=== PATIENT | male | born 1925 | race Caucasian/White ===

== ENCOUNTER 2016-12-28 13:14 | Inpatient (IN) | payer OTHER ==
[~2016-12-28] VITALS: Ht 182.9 cm; Wt 63.5 kg
[~2016-12-28 13:14] MED LIST: ALBU2.5V11 IH; MOME13HF2 IH
--- NOTE | 2016-12-28 13:20 | NUR ---
KIERA FROM HOME DT CHEST PAIN SINCE THIS AM. FAMILY MEMBERS AT BS. IV ACCESS BATTERY STACKER. SEEN BY MD FOR EVAL. NOTED TACHY. SAFETY AND COMFORT MEASURES PROVIDED. WILL MONITOR.
[2016-12-28] MEDS ORDERED: DILTIAZEM HCL 25 MG IV ONE ×2 (13:21→16:14)
[2016-12-28] MEDS ORDERED: DILTIAZEM HCL 50 MG IV IV ONE (13:30)
--- NOTE | 2016-12-28 13:30 | NUR ---
SECOND IV ACCESS STARTED. MEDICATED ORDERED.
[2016-12-28 14:15] LABS: BASOPHILS # (AUTO) 0.2 /CMM (0.0-0.2); BASOPHILS % (AUTO) 1.2 % (0.0-2.0); EOSINOPHILS # (AUTO) 1.1 /CMM (0.0-0.7); EOSINOPHILS % (AUTO) 8.2 % (0.0-6.0); HEMATOCRIT 41 % (39-51); HEMOGLOBIN 13.8 g/dL (13.5-17.5); LYMPHOCYTES # (AUTO) 1.9 /CMM (0.8-4.8); LYMPHOCYTES % (AUTO) 14.4 % (20.0-44.0); MEAN CORPUSCULAR HEMOGLOBIN 35 PG (26.0-33.0); MEAN CORPUSCULAR HGB CONC 34 g/dl (31.0-36.0); MEAN CORPUSCULAR VOLUME 103 fL (80-96); MONOCYTES # (AUTO) 1.2 /CMM (0.1-1.30); MONOCYTES % (AUTO) 9.4 % (2.0-12.0); NEUTROPHILS # (AUTO) 8.7 /CMM (1.8-8.9); NEUTROPHILS % (AUTO) 66.8 % (43.0-81.0); PLATELET COUNT (AUTO) 430 /CMM (150-450); RDW COEFFICIENT OF VARIATION 14.2 (11.5-15.0); RED BLOOD CELL COUNT(AUTO) 3.98 MIL/uL (4.5-6.0); WHITE BLOOD COUNT (AUTO) 13.1 K/uL (4.3-11.0)
--- NOTE | 2016-12-28 14:15 | NUR ---
NOTED FC NUT SIFTER PER CAREGIVER FC HAS BEEN THERE FOR A MONTH. RECEIVED VERBAL ORDER FROM MD TO DC OLD FC AND PUT A NEW ONE. ORDERS CARRIED OUT.
--- NOTE | 2016-12-28 14:30 | NUR ---
AT FOR POC.
[2016-12-28 14:37] LABS: CALCIUM, SERUM 8.4 mg/dL (8.5-10.1); CARBON DIOXIDE 26 mmol/L (21-32); CHLORIDE 101 mmol/L (98-107); CREATININE 1.2 mg/dL (0.6-1.3); GLUCOSE 95 mg/dL (74-106); POTASSIUM 3.5 mmol/L (3.5-5.1); SODIUM SERUM 135 mmol/L (136-145); UREA NITROGEN, BLOOD 21 mg/dL (7-18)
[2016-12-28 14:40] LABS: INR 1.02 (0.87-1.13); PROTHROMBIN TIME 10.6 SECS (9.5-12.7)
[2016-12-28 14:43] LABS: ALANINE AMINOTRANSFERASE 25 U/L (12-78); ALBUMIN 2.8 g/dL (3.4-5.0); ALKALINE PHOSPHATASE 107 U/L (46-116); ASPARTATE AMINOTRANSFERASE 27 U/L (15-37); BILIRUBIN,DIRECT 0.2 mg/dL (0.0-0.2); BILIRUBIN,TOTAL 0.8 mg/dL (0.2-1.0); TOTAL PROTEIN, SERUM 6.6 g/dL (6.4-8.2)
[2016-12-28 14:44] LABS: TROPONIN I 0.375 ng/mL (0.00-0.056)
[2016-12-28] MEDS ORDERED: ASPIRIN 81 MG TAB.CHEW PO ONE (15:00)
[2016-12-28] MEDS ORDERED: ASPIRIN 81 MG TAB.CHEW ONE (15:08)
[2016-12-28 15:10] LABS: APPEARANCE,URINE Slightly Cloudy (CLEAR); BILIRUBIN,URINE Negative (NEGATIVE); BLOOD, URINE Large Ery/uL (NEGATIVE); KETONES,URINE Trace (NEGATIVE); LEUKOCYTE ESTERASE ,URINE Small (NEGATIVE); NITRITE, URINE Negative (NEGATIVE); PROTEIN,URINE 30 mg/dl (NEGATIVE); UGLUCOSE Negative (NEGATIVE); UROBILINOGEN,URINE 0.2 EU/dL (0.2)
[2016-12-28 15:11] LABS: COLOR,URINE Dark Yellow (YELLOW)
[2016-12-28 15:19] LABS: RBC,URINE 21-50 /HPF (0-2); WBC,URINE 15-30 /HPF (0-3)
[2016-12-28 15:20] LABS: BACTERIA,URINE Rare /HPF (None Seen); HYALINE CASTS, URINE Few /LPF (None Seen); MUCUS,URINE Rare /LPF (None Seen); SQUAMOUS EPITHELIAL CELL,UR Few /HPF (None Seen)
[2016-12-28] MEDS ORDERED: TIOT18CA3 IH (15:37)
[2016-12-28] MEDS ORDERED: FURO20TA4 PO (15:37)
[2016-12-28] MEDS ORDERED: ACET-73 PO (15:37)
[2016-12-28] MEDS ORDERED: LEVO50TA8 PO (15:37)
[2016-12-28] MEDS ORDERED: POTA10TA PO (15:37)
[2016-12-28] MEDS ORDERED: SPIR25TA4 PO (15:37)
[2016-12-28] MEDS ORDERED: ASPI325T2 PO (15:37)
[2016-12-28] MEDS ORDERED: ASCO500T9 PO (15:37)
[2016-12-28] MEDS ORDERED: CALC-1067 PO (15:37)
[2016-12-28] MEDS ORDERED: DILT120C47 PO (15:37)
[2016-12-28] MEDS ORDERED: OMEG1CAP8 PO (15:37)
[2016-12-28] MEDS ORDERED: AMIO200T2 PO (15:37)
[2016-12-28] MEDS ORDERED: SENN1TAB21 PO (15:37)
[2016-12-28] MEDS ORDERED: DILTIAZEM HCL 25 MG IV IV ONE (16:00)
[2016-12-28] MEDS ORDERED: ENOXAPARIN SODIUM 80 MG/0.8 ML DISP.SYRIN SQ ONE (16:59)
[2016-12-28] MEDS ORDERED: IV NS 0.9% 500 ML BAG IV ONE (17:00)
[2016-12-28] MEDS ORDERED: ENOXAPARIN SODIUM 60 MG/0.6 ML DISP.SYRIN SQ ONE (17:00)
--- NOTE | 2016-12-28 18:04 | NUR ---
REPORT GIVEN TO ANGLE BROWN FOR 120-1.
--- NOTE | 2016-12-28 18:15 | NUR ---
RN NOTES RECEIVED PT FROM ER VIA MATTHEW, PT A&0X3, ON ROOM AIR SAT AT96%. AFIB/FLUTTER ON THE MONITOR HR 107 WITH THE AT BEDSIDE. R AC 2O GAUGE IV SITE DRY AND INTACT. NO IVF RUNNING. ROWLAND CATH IN PLACE, DRAINING TO GRAVITY, YELLOW IN COLOR. NO SOB OR DISTRESS NOTED AT THIS TIME. BED LOCKED AND IN LOWEST POSITION, CALL LIGHT WITHIN REACH, WILL ENDORSE TO ONCOMING SHIFT.
[2016-12-28 18:30] VITALS: BP 125/65
[2016-12-28] MEDS: ASPIRIN 325 MG TABLET PO SCH (18:30)
[2016-12-28] MEDS ORDERED: MORPHINE SULFATE INJ 2 MG/ML DISP.SYRIN IV PRN (18:30)
[2016-12-28] MEDS ORDERED: ACETAMINOPHEN 325 MG TABLET PO PRN (18:30)
--- NOTE | 2016-12-28 19:30 | NUR ---
SALES REPRESENTATIVE HEALTH INSURANCE INITIAL NOTE PT RECEIVED IN BED WITH FAMILY AT BEDSIDE. A/O X3 AND ABLE TO MAKE SOME NEEDS KNOWN. ON 2L OF O2 VIA NC AND SATURATING 94%. BREATHING EVEN, REGULAR AND UNLABORED. NO C/O CHEST PAIN OR DISCOMFORT AT THIS TIME. HEART, LUNG AND BOWEL SOUNDS AUSCULTATED. WOUND TREATMENT PERFORMED AND DOCUMENTED. PT POSITIONED WITH PILLOWS FOR COMFORT. PER FAMILY, CAREGIVER WILL STAY WITH PT OVER NIGHT. TELE- A-FIB/A-FLUTTER 90-100. BED IN LOWEST POSITION, LOCKED IN PLACE AND BED ALARM ON. HOB ELEVATED. CALL LIGHT WITHIN REACH AT ALL TIMES. WILL CONTINUE TO MONITOR.
[2016-12-28 20:00] VITALS: BP 130/69
--- NOTE | 2016-12-28 23:00 | NUR ---
BOOTH MANAGER NOTE ALSO NOTED WITH ROWLAND CATHETER IN PLACE AND DRAINING BY GRAVITY CLEAR/YELLOW URINE. IV RAC #20 CLEAN, DRY, INTACT AND FLUSHING WELL. SPOKE WITH PT AND CHRISTIANNE HORNER STATING THEIR CODE STATUS TO BE DNR/DNI WITH ADVANCED DIRECTIVES IN CHART. SPOKE WITH HEAD TELLER CAROLYN VELAZQUEZ APPLIANCE ASSEMBLER REGARDING CHANGING FULL CODE STATUS TO DNR/DNI STATUS. ORDERS NOTED AND CARRIED OUT. WILL CONTINUE TO MONITOR.
[2016-12-29] VITALS: BP 132/60
[2016-12-29] MEDS: ASCORBIC ACID 500 MG TABLET PO SCH ×3 (00:42→17:25)
[2016-12-29 02:45] LABS: BASOPHILS # (AUTO) 0.1 /CMM (0.0-0.2); BASOPHILS % (AUTO) 0.9 % (0.0-2.0); EOSINOPHILS # (AUTO) 1.3 /CMM (0.0-0.7); EOSINOPHILS % (AUTO) 10.9 % (0.0-6.0); HEMATOCRIT 35 % (39-51); HEMOGLOBIN 11.8 g/dL (13.5-17.5); LYMPHOCYTES # (AUTO) 2.3 /CMM (0.8-4.8); LYMPHOCYTES % (AUTO) 18.6 % (20.0-44.0); MEAN CORPUSCULAR HEMOGLOBIN 35 PG (26.0-33.0); MEAN CORPUSCULAR HGB CONC 34 g/dl (31.0-36.0); MEAN CORPUSCULAR VOLUME 104 fL (80-96); MONOCYTES # (AUTO) 0.9 /CMM (0.1-1.30); MONOCYTES % (AUTO) 7.4 % (2.0-12.0); NEUTROPHILS # (AUTO) 7.6 /CMM (1.8-8.9); NEUTROPHILS % (AUTO) 62.2 % (43.0-81.0); PLATELET COUNT (AUTO) 344 /CMM (150-450); RDW COEFFICIENT OF VARIATION 15.1 (11.5-15.0); RED BLOOD CELL COUNT(AUTO) 3.38 MIL/uL (4.5-6.0); WHITE BLOOD COUNT (AUTO) 12.2 K/uL (4.3-11.0)
[2016-12-29 02:58] LABS: CALCIUM, SERUM 8.1 mg/dL (8.5-10.1); CARBON DIOXIDE 28 mmol/L (21-32); CHLORIDE 103 mmol/L (98-107); CREATININE 1.1 mg/dL (0.6-1.3); GLUCOSE 91 mg/dL (74-106); MAGNESIUM 1.9 mg/dL (1.8-2.4); PHOSPHORUS 3.2 mg/dL (2.5-4.9); POTASSIUM 3.4 mmol/L (3.5-5.1); SODIUM SERUM 138 mmol/L (136-145); UREA NITROGEN, BLOOD 21 mg/dL (7-18)
[2016-12-29 03:01] LABS: CHOLESTEROL 144 mg/dL (<200); HDL CHOLESTEROL 42 mg/dL (40-60); LDL 105 mg/dL (0-99); TRIGLYCERIDES 41 mg/dL (30-150)
--- NOTE | 2016-12-29 03:15 | NUR ---
RN NOTES Raz Bernard from laboratory called for troponin 1.638; on lovenox 70 q12h. Primary RN Anna notified
[2016-12-29 04:00] VITALS: BP 116/66
--- NOTE | 2016-12-29 04:13 | NUR ---
KETTLE ROOM HELPER NOTE RELAYED TROPONIN RESULT OF 1.638 TO WILDLIFE MANAGEMENT PROFESSOR CAROLYN VELAZQUEZ TOUR DRIVER WITH ORDERS TO HAVE CARDIOLOGY FOLLOW UP IN THE MORNING SHIFT.
[2016-12-29] MEDS: LEVOTHYROXINE SODIUM 50 MCG TABLET PO SCH (06:33)
[2016-12-29] MEDS: FUROSEMIDE 20 MG TABLET PO SCH ×2 (06:33→17:25)
[2016-12-29] MEDS: POTASSIUM CHLORIDE 10 MEQ TABLET.SA PO SCH ×2 (06:33→17:24)
--- NOTE | 2016-12-29 07:15 | NUR ---
RN INITIAL NOTES: REC'D PT AWAKE ON BED, NOT IN ANY FORM OF DISTRESS, A/O X2 W/ CONFUSION, DENIES ANY CHEST PAIN/DISCOMFORT. ON O2 AT 2LPM/NC, NO SOB. ON TELEMONITOR, UNCONTROLLED AFIB, A. FLUTTER W/ HR 90-110'S. HAS RFA G20, SL, FLUSHED, PATENT & INTACT W/ NO S/SX OF INFECTION/ INFILTRATION NOTED. HAS PATENT & INTACT FC DRAINING TO ADEQUATE URINE OUTPUT. HAS CAREGIVER AT BEDSIDE. PROVIDED COMFORT & SAFETY MEASURES. BED KEPT LOW & IN LOCKED POS. CALL LIGHT PLACED W/IN REACH. WILL CONTINUE TO MONITOR AND ATTEND PT'S NEEDS.
--- NOTE | 2016-12-29 07:30 | NUR ---
OIL AND GAS LEASE PUMPER CLOSING NOTE PT REMAINED STABLE DURING SHIFT. NO ACUTE DISTRESS NOTED. CAREGIVER AT BEDSIDE. ALL NEEDS ATTENDED TO PROMPTLY. KEPT CLEAN AND DRY. REPOSITIONED Q2H. TELE- A-FIB/ A-FLUTTER 99. ROW[place] CATHETER IN PLACE. ALL DUE MEDS GIVEN ORDERED AND WELL TOLERATED. NEW IV INSERTED IN RFA D/T PT PULLING OUT. PROCEDURE WELL TOLERATED AND EXPLAINED TO PT THE IMPORTANCE OF HAVING IV ACCESS DURING HOSPITAL STAY. PT VERBALIZED UNDERSTANDING. WILL ENDORSE TO NEXT SHIFT FOR CONTINUITY OF CARE.
[2016-12-29 08:00] VITALS: BP 105/49
[2016-12-29] MEDS: ASPIRIN 325 MG TABLET PO SCH (08:47)
[2016-12-29] MEDS: CALCIUM CARB 600MG /VIT D 1 EACH TABLET PO SCH (08:47)
[2016-12-29] MEDS: SENNOSIDES/DOCUSATE SODIUM 1 TAB TABLET PO SCH ×2 (08:47→17:24)
[2016-12-29] MEDS ORDERED: SPIRONOLACTONE 25 MG TABLET PO SCH (09:00)
[2016-12-29] MEDS ORDERED: ENOXAPARIN SODIUM 60 MG/0.6 ML DISP.SYRIN SQ SCH (09:00)
[2016-12-29] MEDS ORDERED: TIOTROPIUM BROMIDE 6 CAP/BOX CAP.W.DEV IH SCH (09:00)
--- NOTE | 2016-12-29 09:12 | NUR ---
RN NOTES: PT REFERRED TO DR. TOVAR DUE TO UNCONTROLLED AFIB, HR AT 90'S TO 130'S BPM. PT DENIES ANY CHEST PAIN/ DISCOMFORT. BP 109/52. PER MD, PLEASE REFER PT TO DR. SCHULZ FOR CARDIO CONSULT AND ORDERS. CALLED DR. SCHULZ'S OFFICE SPOKE W/ AUSTEN, MESSAGE TO BE RELAYED TO DR. SCHULZ. AWAITING CALL BACK.
--- NOTE | 2016-12-29 11:51 | NUR ---
RN NOTES: PT SEEN & EXAMINED BY DR. TOVAR. EKG RE-ORDERED STAT, SPOKE W/ LULY RT.
[2016-12-29 12:00] VITALS: BP 114/64
[2016-12-29] MEDS ORDERED: HEPARIN INFUSION/D5W 500 ML IV PRN (12:00)
--- NOTE | 2016-12-29 12:10 | NUR ---
RN NOTES: PER DR. TOVAR, NO BOLUS NEEDED TO START HEPARIN DRIP. RELAYED TO MD EKG RESULT WELL.
--- NOTE | 2016-12-29 13:00 | NUR ---
RN NOTES: DR. SCHULZ MADE AWARE OF CONSULT.
[2016-12-29] MEDS ORDERED: IPRATROPIUM NEB FS 0.5 MG/2.5 ML AMPUL.NEB NEB SCH (13:30)
--- NOTE | 2016-12-29 15:55 | NUR ---
RN NOTES: PT SEEN & EXAMINED BY DR. SCHULZ. PER DR. SCHULZ DC HEPARIN DRIP, PT ALREADY ON LOVENOX 70 MG Q12H. NO NEED TO CHECK PT/INR AT 7:30PM.
[2016-12-29 16:00] VITALS: BP 123/62
[2016-12-29] MEDS: SPIRIVA INHALER INH SCH (17:26)
[2016-12-29] MEDS: NITROGLYCERIN 0.4 MG/TAB BOTTLE SL PRN (17:54)
--- NOTE | 2016-12-29 17:55 | NUR ---
RN NOTES: PT'S HR NOTED 133 BPM, SVT ON TELEMONITOR. PT C/O CHEST PAIN & PALPITATIONS. NITROSTAT 0.4 MG SL TAB GIVEN X1. BP 128/32. AFTER MEDICATION, PT WAS RELIEVED. DR. TOVAR MADE AWARE AND ORDER TO INFORM DR. SCHULZ.
[2016-12-29] MEDS ORDERED: AMIODARONE HCL 200 MG TABLET PO SCH (18:00)
[2016-12-29] MEDS ORDERED: METOPROLOL TARTRATE INJ 5 MG/5 ML AMPUL IVP STA (18:08)
--- NOTE | 2016-12-29 18:11 | NUR ---
RN NOTES: DR. ESPINOZA (ON-CALL FOR DR. SCHULZ) MADE AWARE OF PT CURRENT CONDITION W/ ORDERS TO DO STAT EKG, GIVE METOPROLOL 5 MG IVP NOW AND GIVE EARLY DOSE OF 9PM METOPROLOL WELL. Addendum: 12/29/16 at 1836 by AMBAR CURIEL RN ADDENDUM: CALLED DR. ESPINOZA TO RELAY EKG RESULT AND UPDATE RE: CURRENT PT CONDITION. AWAITING CALL BACK. BP 93/53, HR 89 BPM. PT DENIES CHEST PAIN AT THIS TIME.
[2016-12-29] MEDS ORDERED: METOPROLOL TARTRATE 25 MG TABLET PO SCH ×2 (18:25→21:00)
--- NOTE | 2016-12-29 19:00 | NUR ---
RN CLOSING NOTES: SPOKE W/ DR. ESPINOZA AND RELAYED EKG RESULT WELL UPDATED REGARDING CURRENT CONDITION OF THE PT POST IVP OF 5 MG METOPROLOL. PT DENIES CHEST PAIN AND PALPITATION AT THIS TIME. BP 93/45, ON TELEMONITOR PT IS A.FLUTTER W/ HR 86BPM. PER DR. ESPINOZA OKAY TO GIVE METOPROLOL PO 25 MG ORIGINALLY SCHEDULED AND STILL OKAY TO DC TO [facility] FOR CARDIAC CATH PLANNED. RFA G20, SL, KEPT PATENT & INTACT W/ NO S/SX OF INFECTION/ INFILTRATION NOTED. FC KEPT PATENT & INTACT DRAINING TO ADEQUATE URINE OUTPUT. PER DONITA GUAMAN TRANSFER TO [facility] DEPENDS ON BED AVAILABILITY. CAREGIVER AND AT BEDSIDE KEPT UPDATED ABOUT THE PT STATUS. KEPT WELL RESTED. NEEDS ATTENDED. BED KEPT LOW & IN LOCKED POS. CALL LIGHT PLACED W/IN REACH. ENDORSED TO PM RN FOR AILEEN.
--- NOTE | 2016-12-29 19:45 | NUR ---
STEAK SAUCE MAKER INITIAL NOTE RECEIVED PT RESTING IN BED WITH FAMILY/ CAREGIVER AT BEDSIDE. A/O X2 WITH EPISODES OF CONFUSION. BREATHING IS REGULAR AND UNLABORED. ON 2L OF O2 AND SATURATING WELL. IV RFA IN PLACE, CLEAN AND FLUSHING WELL. SPOKE WITH FRANCOIS REGARDING PT TRANSFER FOR TOMORROW. THE DOCTOR HAS CLEARED THE PT AND FAMILY IS AWARE OF PLAN FOR TRANSFER TOMORROW. NO C/O CHEST PAIN OR DISCOMFORT AT THIS TIME. TELE- AFIB CONTROLLED 85. ROWLAND CATHETER IN PLACE AND DRAINING BY GRAVITY. BED IN LOWEST POSITION AND LOCKED IN PLACE. CALL LIGHT WITHIN REACH. WILL CONTINUE TO MONITOR.
[2016-12-29 20:00] VITALS: BP 98/68
[2016-12-29] MEDS: METOPROLOL TARTRATE 25 MG TABLET PO SCH (21:00)
[2016-12-29] MEDS: ENOXAPARIN SODIUM 80 MG/0.8 ML DISP.SYRIN SQ SCH (22:00)
[2016-12-29] MEDS ORDERED: ATORVASTATIN 40 MG TABLET PO SCH (22:00)
[2016-12-30] VITALS: BP 102/66
[2016-12-30 04:00] VITALS: BP 109/64
[2016-12-30] MEDS: LEVOTHYROXINE SODIUM 50 MCG TABLET PO SCH (06:41)
[2016-12-30] MEDS: POTASSIUM CHLORIDE 10 MEQ TABLET.SA PO SCH ×2 (06:41→17:17)
[2016-12-30] MEDS: ASCORBIC ACID 500 MG TABLET PO SCH ×2 (06:41→17:17)
[2016-12-30] MEDS: FUROSEMIDE 20 MG TABLET PO SCH ×2 (06:41→17:00)
--- NOTE | 2016-12-30 07:05 | NUR ---
MORTGAGE PROFESSIONAL NOTE: RECEIVED PT AWAKE IN BED, A&OX2 WITH PERIODS OF CONFUSION, TRIM MACHINE ADJUSTER AT BEDSIDE. DENIES PAIN. ON 2LPM O2 VIA NC, RESPIRATIONS EVEN AND UNLABORED WITH NO SOB NOTED. RFA #20 SL INTACT AND PATENT. ON TELE MONITOR WITH AFIB LOW 130S. ROWLAND CATH DRAINING TO GRAVITY WITH CLEAR YELLOW URINE. BED LOW, LOCKED, X2 SIDE RAILS UP AND CALL LIGHT WITHIN REACH. WILL CONT TO MONITOR.
[2016-12-30] MEDS: NITROGLYCERIN 0.4 MG/TAB BOTTLE SL PRN ×2 (07:42→09:07)
--- NOTE | 2016-12-30 07:43 | NUR ---
RN CLOSING NOTE PT REMAINS IN NO ACUTE DISTRESS IN BED. PT DID NOT HAVE ANY SIGNIFICANT CHANGE IN CONDITION DURING SHIFT. CAREGIVER AT BEDSIDE. F/C CLEAN DRY INTACT AND PATENT WITH YELLOW URINE DRAINING. AWAITING WOUND CONSULT. ALL DUE MEDS GIVEN ORDERED. PT IS CURRENTLY IN ATRIAL TACHYCARDIA @ 132. ALL NEEDS ATTENDED TO, ALL SAFETY MEASURES IN PLACE, AND PT KEPT CLEAN AND DRY. WILL ENDORSE TO AM RN FOR AILEEN.
[2016-12-30 08:00] VITALS: BP 143/101
--- NOTE | 2016-12-30 08:20 | NUR ---
AUTOMOTIVE ELECTRICAL HELPER NOTE: DR. TOVAR AWARE OF PT HR 132-133 AND BP 143/101. PT C/O CHEST PAIN. NITROSTAT 0.4MG TAB PO PRN FOR CHEST PAIN GIVEN ORDERED. DR. TOVAR ALSO ORDERED TO GIVE SCHEDULED 0900 LOPRESSOR 25MG PO. CHARGE NURSE AWARE.
[2016-12-30] MEDS: ASPIRIN 325 MG TABLET PO SCH (08:23)
[2016-12-30] MEDS: SENNOSIDES/DOCUSATE SODIUM 1 TAB TABLET PO SCH ×2 (08:23→17:17)
[2016-12-30] MEDS: CALCIUM CARB 600MG /VIT D 1 EACH TABLET PO SCH (08:23)
[2016-12-30] MEDS: METOPROLOL TARTRATE 25 MG TABLET PO SCH (08:24)
[2016-12-30] MEDS: ENOXAPARIN SODIUM 80 MG/0.8 ML DISP.SYRIN SQ SCH (08:30)
--- NOTE | 2016-12-30 08:35 | NUR ---
CLOTHING DESIGNER NOTE: PT DENIES CHEST PAIN. REFUSED DOSE OF NITROSTAT 0.4MG PO PRN FOR CHEST PAIN. BP 139/101. WILL CONT TO MONITOR.
--- NOTE | 2016-12-30 09:20 | NUR ---
HOSPITALITY RECRUITER NOTE: BP 120/70 HR 133. PATIENT DENIES CHEST PAIN. WILL CONT TO MONITOR.
[2016-12-30] MEDS ORDERED: METOPROLOL TARTRATE INJ 5 MG/5 ML AMPUL IVP ONE (09:24)
--- NOTE | 2016-12-30 10:14 | NUR ---
SWITCHBOARD OPERATOR SUPERVISOR NOTE: PATIENT DENIES CHEST PAIN. HR 88. WILL CONT TO MONITOR.
[2016-12-30 12:00] VITALS: BP 92/68
[2016-12-30 16:00] VITALS: BP_SYST 117; BP_SYST 92; BP_DIAS 56; BP_DIAS 69
[2016-12-30] MEDS: SPIRIVA INHALER INH SCH (17:03)
[2016-12-30] MEDS ORDERED: CEFTRIAXONE 1 G VIAL IM SCH (18:00)
[2016-12-30] MEDS ORDERED: CEFTRIAXONE 1 G in IV D5W 50 ML IV SCH (19:00)
--- NOTE | 2016-12-30 19:00 | NUR ---
LAWYER CRIMINAL NOTE: NO ACUTE CHANGES DURING SHIFT. PATIENT A&OX2 WITH PERIODS OF CONFUSION, DENIED PAIN. ORDERS CARRIED OUT. AWAITING TRANSFER TO [facility] WITH LOGISTICS PROGRAM MANAGER TIME AT 1999. BED LOW, LOCKED, X2 SIDE RAILS UP AND CALL LIGHT WITHIN REACH. WILL ENDORSE TO DANCE COSTUME DESIGNER NURSE FOR AILEEN.
--- NOTE | 2016-12-30 20:22 | NUR ---
RN NOTES RECEIVED REPORT FROM AM SHIFT WITH REGARDS TO THE PATIENT'S DISCHARGE/TRANSFER TO [facility] FOR PLANNED CARDIAC CATHETERIZATION. PATIENT IN BED, NO ACUTE DISTRESS. AFIB CONTROLLED AT THIS TIME. FAMILY AT BEDSIDE. PER AM NURSE, D/C PAPERS ARE PREPARED. GAVE REPORT TO IN HOUSE CRA. ALSO CALLED [facility] AND GAVE REPORT TO STEPHANIE ADKINS. LEFT UNIT IN NO DISTRESS.
== END 2016-12-30 20:05 | disposition short-term general hospital (02) | DRG 280 ==
LOC: ER 14:10 → TELE1 18:04
PROVIDERS: ADMIT Internal Medicine; ATTEND Internal Medicine
DX: I21.4 Non-ST elevation (NSTEMI) myocardial infarction (principal); G93.40 Encephalopathy, unspecified; D68.59 Other primary thrombophilia; I27.20 Pulmonary hypertension, unspecified; I48.92 Unspecified atrial flutter; I49.5 Sick sinus syndrome; I48.91 Unspecified atrial fibrillation; N39.0 Urinary tract infection, site not specified; J44.9 Chronic obstructive pulmonary disease, unspecified; I10 Essential (primary) hypertension; E03.9 Hypothyroidism, unspecified; I25.10 Atherosclerotic heart disease of native coronary artery without angina pectoris; K21.9 Gastro-esophageal reflux disease without esophagitis; Z87.891 Personal history of nicotine dependence; Z88.0 Allergy status to penicillin; X58.XXXA Exposure to other specified factors, initial encounter; Y93.9 Activity, unspecified; Y92.009 Unspecified place in unspecified non-institutional (private) residence as the place of occurrence of the external cause; Z91.81 History of falling; B96.5 Pseudomonas (aeruginosa) (mallei) (pseudomallei) as the cause of diseases classified elsewhere; Z96.659 Presence of unspecified artificial knee joint; T14.8XXA Other injury of unspecified body region, initial encounter
CPT/HCPCS: 36415; 71010-TC; 80048-TC; 80061-TC; 80076-TC; 81000-TC; 83605-TC; 83735-TC; 84100-TC; 84484-TC; 85025-TC; 85730-TC; 87040-TC; 87081-TC; 87086-TC; 87186-TC; 93307-TC; A4606; A6253; A6403; J0696; J1644; J1650; J3490; J7040; J7060; Z7610